=== PATIENT | female | born 1990 | race Hispanic/Latino ===

== ENCOUNTER 2024-05-16 17:30 | Inpatient (IN) | payer SELFPAY ==
[2024-05-16] VITALS (8 sets, daily range): BP systolic 92–129; BP diastolic 55–85; PULSE 81–112; RESP 16–19; TEMP 36.3–36.4; O2SAT 94–98; BMI 16.9
--- NOTE | 2024-05-16 17:49 | EDS_ITS ---
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 She presents here with a court ordered mandate for admission due to known tuberculosis and noncompliance and that she has not responded to previous contacts for treatment from the [facility]. The order of nursing home goes on to say that it will be in effect that she is admitted to [facility] in isolation until she is deemed noncontagious by the [facility]. The patient states she has cough and no other symptoms. She has never been diagnosed with TB in the past that she knows of. She states she does not know where she got it. She is somewhere between 12 and 16 weeks , she denies having any abdominal pain, vaginal bleeding or discharge or any other acute symptoms. [facility] Medical History Tuberculosis Home Medications ?Medication ?Instructions ?Recorded ?Last Taken ?Type vits no.130-ferrous fum 1 tab PO DAILY 05/16/24 Unknown History 27 mg iron-folic acid 800 mcg tablet ( Vitamin) Allergy/AdvReac Type Severity Reaction Status Date / Time No Known Allergies Allergy Verified 05/16/24 17:38 Family History no significant family his Social History (Updated 05/16/24 @ 17:38 by Vanita Celaya) household members: none Smoking Status: Never smoker ROS ROS ED Constitutional Constitutional ED: Denies chills or fever(s) Eyes Eyes: Denies change in vision or diplopia ENT ENT ED: Denies rhinorrhea or sore throat Cardiovascular Cardiovascular: Denies chest pain or palpitations Respiratory/Chest Respiratory/Chest: Reports cough; Denies dyspnea Gastrointestinal Gastrointestinal: Denies abdominal pain, diarrhea, nausea or vomiting Genitourinary Genitourinary ED: Denies dysuria or hematuria Musculoskeletal Musculoskeletal: Denies back pain or neck pain Integumentary Denies abscess or rash Neurologic Neurologic: Denies headache(s), paresthesias or weakness Psychiatric Psychiatric: Denies anxiety or suicidal thoughts EXAM Physical Exam Const Vital Signs: 05/16/24 17:31 05/16/24 17:39 05/16/24 18:31 Temperature 97.3 F L Temperature Source Axillary Pulse Rate 110 H 112 H 89 Respiratory Rate 16 16 19 H Respiratory Effort Respiratory Depth Respiratory Pattern Blood Pressure 113/72 112/85 H 106/61 Blood Pressure Mean 85 94 76 Pulse Ox 95 94 95 Oxygen Delivery Method Room Air Room Air 05/16/24 18:42 05/16/24 19:00 Temperature Temperature Source Pulse Rate 110 H Respiratory Rate 16 Respiratory Effort Normal Non-Labored Respiratory Depth Normal Respiratory Pattern Normal Blood Pressure 111/71 Blood Pressure Mean 84 Pulse Ox 98 Oxygen Delivery Method Room Air Positive well nourished and well developed General Appearance ED: well developed and NAD HEENT Reports moist mucous membranes normocephalic and atraumatic Eyes PERRL and EOMs intact bilaterally Neck full ROM, no lymphadenopathy and supple Resp normal respiratory effort and clear to auscultation bilaterally Effort and Inspection: able to speak in complete sentences Cardio regular rate, regular rhythm and no murmurs GI non-tender and non-distended Auscultation: normoactive bowel sounds Palpation: soft Back/Spine no CVA tenderness General Back: other FROM Extremity normal to inspection General Extremety ED: Negative for edema, pulses abnormal or tenderness General Extremity: Negative for edema or pulses abnormal Neuro oriented x3, CN's II-XII intact bilaterally and no sensory deficits noted Sensorium / Orientation: awake and alert Motor Exam: strength 5/5 throughout Skin no rashes or lesions noted and no wounds MDM MDM MDM Narrative Medical decision making narrative: Nursing was able to get heart tones, 156. Chest x-ray 1 view on my interpretation shows infiltrate right upper lobe. Radiology in agreement with cavitary lesion present consistent with active TB. Labs noted. Discussed with hospitalist for admission. Lab Data Attestation: I reviewed the patient's lab results. Labs: Laboratory Results - last 24 hr 05/16/24 17:56 WBC 9.6 RBC 4.77 Hgb 11.6 L Hct 36.7 L MCV 76.9 L MCH 24.3 L MCHC 31.6 L RDW Std Deviation 45.0 H RDW Coeff of Daren 16.3 H Plt Count 450 MPV 9.0 Immature Gran % (Auto) 0.400 Neut % (Auto) 82.6 H Lymph % (Auto) 12.1 L [place] % (Auto) 3.9 Eos % (Auto) 0.9 Baso % (Auto) 0.1 Absolute Neuts (auto) 8.0 H Absolute Lymphs (auto) 1.17 Nucleated RBC % 0 Sodium 134 L Potassium 3.6 Chloride 105 Carbon Dioxide 24.0 Anion Gap 5 BUN 8 Creatinine 0.42 L Estim Creat Clear Calc 119.61 Est GFR (MDRD) Af Amer 222 Est GFR (MDRD) Non-Af 184 BUN/Creatinine Ratio 18.9 Glucose 84 Calcium 9.0 Radiography Diagnostic Testing: Clinical Impression(s) from Imaging Studies Chest X-Ray 05/16/24 18:31 IMPRESSION: 1. Extensive diffuse interstitial and patchy alveolar infiltrate LEFT lung base, and extensive infiltrate with interstitial and parenchymal density in the RIGHT mid and upper lung with area of cavitation RIGHT upper lobe. Pattern is consistent with history of TB. 2. No evidence of congestive failure Electronically Signed: Timur Glynn MD at 19:16 EDT , Management Discussion w/another healthcare provider: Hospitalist Discharge Plan Triage Chief Complaint: Shortness of Breath ED Provider: Kemar Diamond Dx/Rx/DC Orders Clinical Impression: Active tuberculosis Prescriptions: No Action Vitamin 27 mg iron- 800 mcg tablet 1 tab PO DAILY Primary Care Provider: Care Physician,No Primary Referrals: Care Physician,No Primary [Primary Care Provider] - Print Language: Amharic Disposition Disposition: Acute Care Hospital [facility]
[2024-05-16 18:23] LABS: Absolute Lymphocyte Count 1.17 X10^3/uL (0.83-4.51); Basophil# 0.01 X10^3/uL; Basophil% 0.1 % (0-1); Eosinophil# 0.09 X10^3/uL; Eosinophils% 0.9 % (0-5); Hematocrit 36.7 % (37-47); Hemoglobin 11.6 g/dL (12.0-15.0); Lymphocyte # 1.17 X10^3/ul (0.83-4.51); Lymphocyte % 12.1 % (19-41); Mean Corp Hgb Conc 31.6 g/dL (32-36); Mean Corpuscular Hgb 24.3 pg (27.0-32.0); Mean Corpuscular Volume 76.9 fL (81-99); Monocyte# 0.38 X10^3/uL; Monocyte% 3.9 % (0-10); NRBC Flagged by Analyzer 0 % (0-5); Neutrophil # 7.95 X10^3/uL (2.7-7.7); Neutrophil % 82.6 % (47-70); Platelet Count 450 K/mm3 (150-450); RBC Distribution Width CV 16.3 % (11.6-14.6); Red Blood Count 4.77 M/mm3 (4.2-5.4); White Blood Count 9.6 K/mm3 (4.4-11.0)
--- NOTE | 2024-05-16 18:31 | RAD_ITS ---
INDICATION: cough; symptomatic TB EXAMINATION/TECHNIQUE: X-RAY - XR Chest 1 View COMPARISON: No previous relevant examinations available for comparison.. FINDINGS: LIFE-SUPPORT AND LINES: 1. None HEART AND VESSELS: The cardiac silhouette, pulmonary vasculature have normal appearance. No evidence of congestive failure. LUNGS AND PLEURAL SPACES: Extensive diffuse interstitial infiltrate with focal areas of nodular density at the LEFT lung base. Area of cavitation the RIGHT upper lobe, and significant interstitial and pleural thickening in the RIGHT mid and RIGHT upper lung. Pattern is consistent with history of TB. MEDIASTINUM AND HILAR REGIONS: No masses adenopathy noted. No areas of calcification. Visualized upper airway is normal in position. BONY ELEMENTS: No acute bony changes noted. RAD/Chest 1 View (Portable) IMPRESSION: 1. Extensive diffuse interstitial and patchy alveolar infiltrate LEFT lung base, and extensive infiltrate with interstitial and parenchymal density in the RIGHT mid and upper lung with area of cavitation RIGHT upper lobe. Pattern is consistent with history of TB. 2. No evidence of congestive failure Electronically Signed: Timur Glynn MD at 19:16 EDT ,
[2024-05-16 18:32] LABS: Anion Gap 5 (5-15); BUN 8 mg/dL (7-18); BUN/Creat Ratio 18.9 RATIO (10-20); Chloride 105 mmol/L (98-107); Creatinine, Serum 0.42 mg/dL (0.55-1.02); EST Glomerular Filtration Rate 184 mL/min (>60); Est Glom Filt Rate - Afr Amer 222 mL/min (>60); Estimated Creatinine Clearance 119.61 ml/min; Glucose 84 mg/dL (74-106); Potassium 3.6 mmol/L (3.5-5.1); Sodium Level 134 mmol/L (136-145)
--- NOTE | 2024-05-16 20:16 | PCM.HP.STD ---
[facility] - General General Date of Admission: 05/16/24 Date of Service: 05/16/24 Chief Complaint: Sent by health dept for TB. HPI Narrative Patient has 2 medical record numbers here: Her other medical record number is [id number]. KIZZY PICKTET, is a 34 F who presents by mandated by the health department for tuberculosis. Patient was seen here in November and had a cavitary lesion that was found out to be tuberculosis. Patient had been on treatment for that but due to the high cost, she had to get her medications from her family in [place]. She was taking medications up until recently where she said that she was told that the tuberculosis is not active and that she actually has a pneumonia and had been treated for that pneumonia. She then went to [facility] that told her that she would need treatment for her tuberculosis. [facility] Medical History Tuberculosis Home Medications ?Medication ?Instructions ?Recorded ?Last Taken ?Type vits no.130-ferrous fum 1 tab PO DAILY 05/16/24 Unknown History 27 mg iron-folic acid 800 mcg tablet ( Vitamin) Allergy/AdvReac Type Severity Reaction Status Date / Time No Known Allergies Allergy Verified 05/16/24 17:38 Family History no significant family his Social History (Updated 05/16/24 @ 20:[address] Lucas Devi DO) household members: none Smoking Status: Never smoker alcohol intake: never substance use type: does not use ROS ROS Narrative Patient has lost weight. Improved she was 55 kg (she [place] the states [place] about 2 [place]) and now she is down to 39 kg. Does have shortness of breath. All review of systems were negative except as mentioned above in the history of present illness and the other review of systems. Vital Signs Vital Signs Vital Signs: 05/16/24 17:31 05/16/24 17:39 05/16/24 18:31 Temperature 36.3 C L Temperature Source Axillary Pulse Rate 110 H 112 H 89 Respiratory Rate 16 16 19 H Respiratory Effort Respiratory Depth Respiratory Pattern Blood Pressure 113/72 112/85 H 106/61 Blood Pressure Mean 85 94 76 Pulse Ox 95 94 95 Oxygen Delivery Method Room Air Room Air 05/16/24 18:42 05/16/24 19:00 05/16/24 19:43 Temperature 36.3 C L Temperature Source Pulse Rate 110 H 81 Respiratory Rate 16 19 H Respiratory Effort Normal Non-Labored Respiratory Depth Normal Respiratory Pattern Normal Blood Pressure 111/71 129/81 H Blood Pressure Mean 84 97 Pulse Ox 98 95 Oxygen Delivery Method Room Air 05/16/24 20:00 Temperature Temperature Source Pulse Rate Respiratory Rate Respiratory Effort Respiratory Depth Respiratory Pattern Blood Pressure 106/59 L Blood Pressure Mean 74 Pulse Ox Oxygen Delivery Method Weight Weight: 39.4 kg Body Mass Index (BMI) 16.9 Results Lab / Micro Data Attestation: I reviewed the patient's lab results. 05/16/24 17:56 05/16/24 17:56 Labs: Laboratory Results - last 24 hr 05/16/24 17:56: WBC 9.6, RBC 4.77, Hgb 11.6 L, Hct 36.7 L, MCV 76.9 L, MCH 24.3 L, MCHC 31.6 L, RDW Std Deviation 45.0 H, RDW Coeff of Daren 16.3 H, Plt Count 450, MPV 9.0, Immature Gran % (Auto) 0.400, Neut % (Auto) 82.6 H, Lymph % (Auto) 12.1 L, [place] % (Auto) 3.9, Eos % (Auto) 0.9, Baso % (Auto) 0.1, Absolute Neuts (auto) 8.0 H, Absolute Lymphs (auto) 1.17, Nucleated RBC % 0, Sodium 134 L, Potassium 3.6, Chloride 105, Carbon Dioxide 24.0, Anion Gap 5, BUN 8, Creatinine 0.42 L, Estim Creat Clear Calc 119.61, Est GFR (MDRD) Af Amer 222, Est GFR (MDRD) Non-Af 184, BUN/Creatinine Ratio 18.9, Glucose 84, Calcium 9.0 Imaging Radiology Impression Chest X-Ray 05/16/24 18:31 IMPRESSION: 1. Extensive diffuse interstitial and patchy alveolar infiltrate LEFT lung base, and extensive infiltrate with interstitial and parenchymal density in the RIGHT mid and upper lung with area of cavitation RIGHT upper lobe. Pattern is consistent with history of TB. 2. No evidence of congestive failure Electronically Signed: Timur Glynn MD at 19:16 EDT , Assessment & Plan Assessment/Plan (1) Active tuberculosis: PLAN: Plan Tuberculosis Diagnosed back in August 2023. Patient had been using some tuberculosis medications that she was able to get through family from [place]. She stated that she was unable to afford the medications here. It is unclear if she was on RIPE therapy or something different. Chest x-ray still shows any ongoing right upper lobe cavitary lesion. Patient has been seen at [facility], however, was not able to find any records through [facility]. Discussed with Dr. Hamilton of infectious disease. He says he will review her records and make Further recommendations about what the treatment options should be. Patient had a court ordered mandate from the health department and that she will not be able to leave until she has been released by the health department. She is upset, obviously, she is not happy to have to eat hospital food and likes to cook her own food. About 3 months Continued vitamin Moderate protein calorie malnutrition Regular diet with supplements. Patient has lost roughly 16 kg over the past couple years. VTE prophylaxis: Low risk. Charges/Coding Visit Charges Inpatient E&M: 36578 Init Hosp L2
[2024-05-17 03:15] VITALS: BP 99/61; PULSE 112; RESP 16; TEMP 36.5; O2SAT 96
[2024-05-17 06:26] LABS: Absolute Lymphocyte Count 1.18 X10^3/uL (0.83-4.51); Absolute Neutrophil Count 6.8 X10^3/uL (2.0-7.7); Basophil# 0.02 X10^3/uL; Basophil% 0.2 % (0-1); Eosinophil# 0.16 X10^3/uL; Eosinophils% 1.9 % (0-5); Hematocrit 34.4 % (37-47); Hemoglobin 10.6 g/dL (12.0-15.0); Lymphocyte # 1.18 X10^3/ul (0.83-4.51); Lymphocyte % 13.8 % (19-41); Mean Corp Hgb Conc 30.8 g/dL (32-36); Mean Corpuscular Hgb 24.1 pg (27.0-32.0); Mean Corpuscular Volume 78.4 fL (81-99); Mean Platelet Vol. 8.7 fl (6.2-12.0); Monocyte# 0.38 X10^3/uL; Monocyte% 4.4 % (0-10); NRBC Flagged by Analyzer 0 % (0-5); Neutrophil # 6.79 X10^3/uL (2.7-7.7); Neutrophil % 79.2 % (47-70); Platelet Count 422 K/mm3 (150-450); RBC Distribution Width CV 16.4 % (11.6-14.6); RBC Distribution Width SD 46.3 fl (35.1-43.9); Red Blood Count 4.39 M/mm3 (4.2-5.4); White Blood Count 8.6 K/mm3 (4.4-11.0)
[2024-05-17 07:08] LABS: ALB/GLOB Ratio 0.5 RATIO (0.9-2.4); AST(SGOT) 17 U/L (15-37); Alanine Aminotransfer ALT/SGPT 13 U/L (13-56); Albumin, Serum 2.3 g/dL (3.2-5.0); Alkaline Phosphatase 116 U/L (45-117); Anion Gap 8 (5-15); BUN 7 mg/dL (7-18); BUN/Creat Ratio 18.3 RATIO (10-20); Calcium,Total 8.6 mg/dL (8.5-10.1); Chloride 106 mmol/L (98-107); Creatinine, Serum 0.38 mg/dL (0.55-1.02); EST Glomerular Filtration Rate 207 mL/min (>60); Est Glom Filt Rate - Afr Amer 250 mL/min (>60); Globulin 4.9 g/dL (2.2-4.2); Glucose 92 mg/dL (74-106); Potassium 3.5 mmol/L (3.5-5.1); Protein, Total 7.2 g/dL (6.4-8.2); Sodium Level 136 mmol/L (136-145); Thyroid Stim Hormone (TSH) 1.21 uIU/mL (0.358-3.74)
[2024-05-17 09:15] VITALS: BP 95/59; PULSE 104; RESP 16; TEMP 36.3; O2SAT 100
[2024-05-17] MEDS: Prenatal Vits Tablet 1 TABLET PO (09:20)
--- NOTE | 2024-05-17 11:17 | CON.PCM.ID_ITS ---
Assessment & Plan Assessment/Plan (1) Active tuberculosis: PLAN: Reviewed [facility] records, was admitted under name Stan Nicholson. She has prior admit here under Bessy Mcrae and was dx with TB in 08/2023. Reports taking unknown TB meds from doctor in [place] for 5 months, but still with active sputum cx (+) MTB, rif sensitive per pcr. HIV at [facility] neg, hep B and C and syph Ab neg as well. TB treatment plan is 9 months of oral abx: rifampin 450mg daily isoniazid 200mg daily with pyridoxine 25mg daily ethambutol 800mg daily after 2 months, if her TB in [facility] system is sensitive, plan would be to stop the ethambutol and continue the other 3 meds. Counseled her re: need for compliance with meds. These abx are safe during and while . Health dept has spoken with nursing this AM and will come see her today. Will need monitoring during the course to make sure sputum AFB clears. Will follow, thank you, d/w nursing, telehealth case manager, and hospitalist. (2) : HPI Consult Data Date of Consult: 05/17/24 HPI Narrative Reason for Consultation: TB HPI Narrative: BESSY PICKETT, is a 34 F who presents with active TB, 17 week gestation. Originally from [place]. Admitted 08/2023 here with hemoptysis, night sweats, cavitary lesions in chest. Dx with TB, health dept was unable to followup with her. She reports TB meds were too expensive, so took TB meds (9 pills a day) for 5 months from doctor in [place] that she called. No further hemoptysis, no night sweats. Continues to lose weight. Came to ED 02/2024 due to cough and dyspnea. Found she was , and she stopped TB meds due to concern for her baby. I was called from the ED and told that there was a patient who had taken an antibiotic for 4 months for TB without active symptoms or cavitary lesions on imaging which sounded consistent with latent TB. She has three different names in our hospital system, variations on Bessy/Amee/Stan and Salome/Thor. Admitted to [facility] this past week under name Stan Nicholson for pneumonia, seen by ID, dx with active TB based on (+) sputum AFB. Plan was made for TB treatment, health dept here wanted her admitted to [facility] to start on treatment in an observed setting. She is feeling ok, some mild nonproductive cough. No n/v/d. Full ROS performed and neg except as noted above. 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 [facility] Medical History (Updated 05/17/24 @ 11:[address] Estiven Chaves MD) Tuberculosis Home Medications ?Medication ?Instructions ?Recorded ?Last Taken ?Type vits no.130-ferrous fum 1 tab PO DAILY 05/16/24 Unknown History 27 mg iron-folic acid 800 mcg tablet ( Vitamin) Allergy/AdvReac Type Severity Reaction Status Date / Time No Known Allergies Allergy Verified 05/16/24 17:38 Family History no significant family his Social History household members: none Smoking Status: Never smoker alcohol intake: never substance use type: does not use Physical Exam Const alert, oriented x3 and no apparent distress General Appearance: cooperative HEENT normocephalic and head/scalp atraumatic Eyes PERRL and EOMs intact bilaterally Neck supple and No nodes Resp Resp Narrative: diminished RUL Cardio regular rate and regular rhythm GI soft to palpation, non-tender and non-distended Extremity General Extremity: Negative for edema Skin no rashes or lesions noted Neuro CN's II-XII intact bilaterally Lab / Micro Data Attestation: I reviewed the patient's lab results. 05/17/24 06:16 05/17/24 06:16 Labs: Laboratory Results - last 24 hr 05/16/24 17:56: WBC 9.6, RBC 4.77, Hgb 11.6 L, Hct 36.7 L, MCV 76.9 L, MCH 24.3 L, MCHC 31.6 L, RDW Std Deviation 45.0 H, RDW Coeff of Daren 16.3 H, Plt Count 450, MPV 9.0, Immature Gran % (Auto) 0.400, Neut % (Auto) 82.6 H, Lymph % (Auto) 12.1 L, [place] % (Auto) 3.9, Eos % (Auto) 0.9, Baso % (Auto) 0.1, Absolute Neuts (auto) 8.0 H, Absolute Lymphs (auto) 1.17, Nucleated RBC % 0, Sodium 134 L, Potassium 3.6, Chloride 105, Carbon Dioxide 24.0, Anion Gap 5, BUN 8, Creatinine 0.42 L, Estim Creat Clear Calc 119.61, Est GFR (MDRD) Af Amer 222, Est GFR (MDRD) Non-Af 184, BUN/Creatinine Ratio 18.9, Glucose 84, Calcium 9.0 05/17/24 06:16: WBC 8.6, RBC 4.39, Hgb 10.6 L, Hct 34.4 L, MCV 78.4 L, MCH 24.1 L, MCHC 30.8 L, RDW Std Deviation 46.3 H, RDW Coeff of Daren 16.4 H, Plt Count 422, MPV 8.7, Immature Gran % (Auto) 0.500, Neut % (Auto) 79.2 H, Lymph % (Auto) 13.8 L, [place] % (Auto) 4.4, Eos % (Auto) 1.9, Baso % (Auto) 0.2, Absolute Neuts (auto) 6.8, Absolute Lymphs (auto) 1.18, Nucleated RBC % 0, Sodium 136, Potassium 3.5, Chloride 106, Carbon Dioxide 22.0, Anion Gap 8, BUN 7, Creatinine 0.38 L, Estim Creat Clear Calc 132.20, Est GFR (MDRD) Af Amer 250, Est GFR (MDRD) Non-Af 207, BUN/Creatinine Ratio 18.3, Glucose 92, Calcium 8.6, Total Bilirubin 0.30, AST 17, ALT 13, Alkaline Phosphatase 116, Total Protein 7.2, A lbumin 2.3 L, Globulin 4.9 H, Albumin/Globulin Ratio 0.5 L, TSH 1.21 Imaging Radiology Impression Chest X-Ray 05/16/24 18:31 IMPRESSION: 1. Extensive diffuse interstitial and patchy alveolar infiltrate LEFT lung base, and extensive infiltrate with interstitial and parenchymal density in the RIGHT mid and upper lung with area of cavitation RIGHT upper lobe. Pattern is consistent with history of TB. 2. No evidence of congestive failure Electronically Signed: Timur Glynn MD at 19:16 EDT , ADDENDUM: 05/16/242031 IMPRESSION: undefined
[2024-05-17 15:00] VITALS: BP 97/55; PULSE 100; RESP 16; TEMP 36.6; O2SAT 95
--- NOTE | 2024-05-17 15:09 | PCM.DC.SUM ---
Providers Date of Admission: 05/16/24 Date of Discharge: 05/17/24 Primary Care Physician: Rochelle Primary Care Phys Consultations 05/16/24 20:37 Consult: Infectious Disease Routine Consulting Provider: Estiven Chaves Reason for Consult: TB EMERGENT Consult: No MD Notified: Yes Date Notified: 05/16/24 Time Notified: 20:15 Method of Notification: Verbal Reason For Visit: TB Diagnosis Discharge Diagnosis (1) Active tuberculosis: Status: Acute Code(s): A15.9 - Respiratory tuberculosis unspecified (2) : Status: Acute Code(s): Z34.90 - Encounter for supervision of normal , unspecified, unspecified trimester Medications at Discharge Home Medications vits no.130-ferrous fum 27 mg iron-folic acid 800 mcg tablet ( Vitamin) 1 tab PO DAILY 05/16/24 Hospital Course Operations None Procedures None Summary of Care Provided Minutes Spent on Discharge: 55 Hospital Course: Patient is a 34 year old female with a PMH of pulmonary tuberculosis who came in to the ED for admission as mandated by the [facility]. She was from [place] originally and had [place] in the [place] for about 2 [place]. She had been diagnosed with pulmonary tuberculosis in August 2023 and has been lost to follow-up. She has been taking an old TB meds from her doctor in [place] for 5 months because she said she was not getting meds here in the [place]. She was taking the medications until recently when she says she wa told the tuberculosis was not active and she was treated for pnuemonia. She was recently seen at a [facility] facility and was told her TB was still active and she would need treatment. She was discharged home to follow up with her PCP and ID to be given her TB meds. However, she was mandated to come to the ED for admission by the health department to commence treatment. ID was consulted. Patient was also about 17 weeks . Per ID, her sputum culture was still positive for AFBs. Chest x-ray showed extensive diffuse interstitial and patchy alveolar infiltrates in the left lung base and extensive infiltrate with interstitial and parenchymal density in the right mid and upper lung with area of cavitation in the right upper lobe which are consistent with history of TB. She also admitted to a history of significant weight loss over the last 2 years. ID reviewed patient and recommended that she be started on 9 months in total of TB treatment with rifampin for 50 mg daily, isoniazid 200 mg daily with pyridoxine 25 mg daily and ethambutol 800 mg daily. After 2 months if ATV was still testing positive plan would be to stop ethambutol and continue the other meds. She was counseled about need for compliance and counseled that these received during and was breast-feeding. All department came to see patient as patient would need monitoring during the course of the treatment to make sure his sputum for AFBs were clear. Patient was discharged home on 05/17/2024 and is to follow-up with her primary care doctor and to be followed up by the ID doctor on outpatient basis and to be monitored by the health department to ensure compliance with her TB meds. Patient seen and examined. I communicated with patient via [employer] offensive coordinator as she speaks only Nauruan. She had no complaints and wanted to be discharged home. Review of systems otherwise negative. Labs and vitals reviewed. Medication reviewed and reconciled. Physical Exam Const alert, oriented x3 and no apparent distress General Appearance: cooperative, comfortable and well kempt Orientation / Consciousness: awake Exam Limitations: no limitations Nutritional Appearance: underweight and thin HEENT normocephalic, head/scalp atraumatic, hearing grossly normal bilaterally, moist oral mucous membranes and oropharynx normal Mouth: oral and palatal mucosa normal Eyes PERRL, EOMs intact bilaterally and conjunctivae normal Neck no lymphadenopathy and supple Resp normal respiratory effort, no retractions, no use of accessory muscles and clear to auscultation bilaterally Cardio regular rate, regular rhythm, S1 normal heart sound, S2 normal heart sound and no murmurs GI normal to inspection, nondistended, normoactive bowel sounds, soft to palpation, non-tender and non-distended Extremity normal to inspection, full ROM and no clubbing, cyanosis or edema Skin no rashes or lesions noted Neuro oriented x3, CN's II-XII intact bilaterally, moves all extremities and no focal motor deficits Sensorium / Orientation: awake and alert Motor Exam: strength 5/5 throughout Psych affect normal Weight / BMI Weight Weight: 86 lb 13.794 oz Body Mass Index (BMI) 16.9 ABG / Lab / Microbiology Data 05/17/24 06:16 05/17/24 06:16 Laboratory: Laboratory Results - last 24 hr 05/16/24 17:56: WBC 9.6, RBC 4.77, Hgb 11.6 L, Hct 36.7 L, MCV 76.9 L, MCH 24.3 L, MCHC 31.6 L, RDW Std Deviation 45.0 H, RDW Coeff of Daren 16.3 H, Plt Count 450, MPV 9.0, Immature Gran % (Auto) 0.400, Neut % (Auto) 82.6 H, Lymph % (Auto) 12.1 L, Clayton % (Auto) 3.9, Eos % (Auto) 0.9, Baso % (Auto) 0.1, Absolute Neuts (auto) 8.0 H, Absolute Lymphs (auto) 1.17, Nucleated RBC % 0, Sodium 134 L, Potassium 3.6, Chloride 105, Carbon Dioxide 24.0, Anion Gap 5, BUN 8, Creatinine 0.42 L, Estim Creat Clear Calc 119.61, Est GFR (MDRD) Af Amer 222, Est GFR (MDRD) Non-Af 184, BUN/Creatinine Ratio 18.9, Glucose 84, Calcium 9.0 05/17/24 06:16: WBC 8.6, RBC 4.39, Hgb 10.6 L, Hct 34.4 L, MCV 78.4 L, MCH 24.1 L, MCHC 30.8 L, RDW Std Deviation 46.3 H, RDW Coeff of Daren 16.4 H, Plt Count 422, MPV 8.7, Immature Gran % (Auto) 0.500, Neut % (Auto) 79.2 H, Lymph % (Auto) 13.8 L, Clayton % (Auto) 4.4, Eos % (Auto) 1.9, Baso % (Auto) 0.2, Absolute Neuts (auto) 6.8, Absolute Lymphs (auto) 1.18, Nucleated RBC % 0, Sodium 136, Potassium 3.5, Chloride 106, Carbon Dioxide 22.0, Anion Gap 8, BUN 7, Creatinine 0.38 L, Estim Creat Clear Calc 132.20, Est GFR (MDRD) Af Amer 250, Est GFR (MDRD) Non-Af 207, BUN/Creatinine Ratio 18.3, Glucose 92, Calcium 8.6, Total Bilirubin 0.30, AST 17, ALT 13, Alkaline Phosphatase 116, Total Protein 7.2, Albumin 2.3 L, Globulin 4.9 H, Albumin/Globulin Ratio 0.5 L, TSH 1.21 Radiography Diagnostic Testing: Radiology Impression Chest X-Ray 05/16/24 18:31 IMPRESSION: 1. Extensive diffuse interstitial and patchy alveolar infiltrate LEFT lung base, and extensive infiltrate with interstitial and parenchymal density in the RIGHT mid and upper lung with area of cavitation RIGHT upper lobe. Pattern is consistent with history of TB. 2. No evidence of congestive failure Electronically Signed: Timur Glynn MD at 19:16 EDT , ADDENDUM: 05/16/242031 IMPRESSION: undefined D/C Instructions Discharge Diet: No restrictions Discharge Activity: Return to Normal Activity Weight Bearing Status: Weight bearing as tolerated Call your doctor if you observe: Fever of 101 or Higher, Shortness of breath, Dizziness, Swelling in the ankles and Chest pain Meaningful Use Info Meaningful Use Meaningful Use Diagnoses (Choose all that apply): None applicable Ischemic Stroke Statin Dosing Therapy Reference: STATIN DOSE THERAPY REFERENCE: * Patients > 75 years receive moderate or high dose statin therapy. * Patients 75 years or YOUNGER should receive HIGH intensity statin dose unless contraindicated. You will be required to document reason for non-treatment if statin daily dose does not meet guidelines. HIGH DOSE STATIN THERAPY DAILY Atorvastatin > than or = to 40 mg Rosuvastatin > than or = to 20 mg Amlodipine + Atorvastatin > than or = to 2.5/40 mg Ezetimibe + Simvastatin 10/80 mg Simvastatin 80mg Discharge Plan Admission Admit Date/Time: 05/16/24 20:14 Primary Reason for Your Visit: pulmonary tuberculosis Attending Provider: Billie Gomez Primary Care Provider: Care Physician,No Primary Consulting Providers: Epifanio Chaves Eric Instructions Patient Instructions: Tuberculosis Dc Discharge Orders/Prescriptions Prescriptions: Continued Vitamin 27 mg iron- 800 mcg tablet 1 tab PO DAILY Referrals / Follow Up: Care Physician,No Primary [Primary Care Provider] - Disposition Disposition (needs filled in before D/C Order can be placed): Home, Self Care Charges/Coding Visit Charges Inpatient E&M: 87762 Disch Hosp >30min
--- NOTE | 2024-05-17 15:48 | CASEMGMT ---
JOSSIE JAEGER Assessment/chart review: Chart review completed. Pt has active TB and the health dep't wanted her admitted to [facility] to start on treatment. This RN CM has spoken w/both Angeles (nurse) and Carly, who are from [facility] and have been in to talk w/pt today, using the interpretor pad. Pt is [place] speaking and came from [place] about 2 1/2 years ago. Pt is currently , 17 weeks gestation. Pt has a sister, Rebecca Aguila, who is listed on pt's demographics as living in [place], although Angeles states the sister is currently in [place]. Pt has reported that she lives w/friend, Julio Douglas. PCP, TRANSCRIPTION: Pt does not have a PCP or TRANSCRIPTION. Angeles @ the [facility]' states she will work on coordinating appts for pt for follow-up care w/PCP and TRANSCRIPTION. Pt also provided w/T[place]anian written pamphlet on [facility]. Insurance: No insurance. Pt was admitted to [facility] 09/08/23 w/PNA. ID consulted. Yesenia HENDRICKS, note 09/09/23, referral made to [facility] for [facility] application completion. Medications: Pt was provided w/medications for TB @ discharge from [facility]. Angeles states pt has verified with them that she has 30-day supply of TB meds @ her home. Angeles states they will personally go into pt's home to verify this @ dc. They will do Direct Observation Therapy w/pt daily where they will go to pt's home and personally observe her taking her medications. They are in the process of purchasing and iPad for pt and once they obtain this, they will Facetime w/pt daily to observe her taking TB medications. Transportation: Angeles states they have a mobile unit and they will provide transportation of pt from the hospital to her home @ discharge. Angeles states she will be closely working w/patient re: TB treatment and f/u care and states no further f/u needed by this JOSSIE Gomez made aware Angeles from the [facility]' has things arranged for pt to discharge home today. fire operations forester, Tiffanie, aware and is to contact Angeles once discharge orders are in and pt is ready to discharge. Tiffanie provided w/the [facility] Dep't #, Angeles's extension, and Angeles's cell #. Rodolfo BSN RN CM
[2024-05-17] MEDS: 0.9% Normal Saline (500mL Bag) 500 ML 1000 ML IV (16:21)
--- NOTE | 2024-05-17 16:31 | DCINST_ITS ---
Discharge Instructions Diet Discharge Diet: No restrictions Activity Discharge Activity: Return to Normal Activity Weight Bearing Status: Weight bearing as tolerated Dressing / Incision Call your doctor if you observe: Fever of 101 or Higher, Shortness of breath, Dizziness, Swelling in the ankles and Chest pain Follow Up Care Test Results: Test results from this visit will be discussed in further detail at your follow- up appointment, if applicable. Discharge Plan Admission Admit Date/Time: 05/16/24 20:14 Primary Reason for Your Visit: pulmonary tuberculosis Attending Provider: Billie Gomez Primary Care Provider: Care Physician,No Primary Consulting Providers: Estiven Chaves; Lucas Devi Instructions Patient Instructions: Tuberculosis Dc Discharge Orders/Prescriptions Prescriptions: Continued Vitamin 27 mg iron- 800 mcg tablet 1 tab PO DAILY Referrals / Follow Up: Care Physician,No Primary [Primary Care Provider] - Disposition Disposition (needs filled in before D/C Order can be placed): Home, Self Care
[2024-05-17 17:04] VITALS: BP 102/60
== END 2024-05-17 17:51 | disposition home or self-care (01) | DRG 832 ==
LOC: ED 19:44 → PCU 20:40
PROVIDERS: Emergency Provider Emergency Medicine; Visit Provider Student in an Organized Health Care Education/Training Program
DX: O98.012 Tuberculosis complicating pregnancy, second trimester (principal); A15.9 Respiratory tuberculosis unspecified; E44.0 Moderate protein-calorie malnutrition; O25.12 Malnutrition in pregnancy, second trimester; Z3A.17 17 weeks gestation of pregnancy; Z91.199 Patient's noncompliance with other medical treatment and regimen due to unspecified reason; Z60.3 Acculturation difficulty
CPT/HCPCS: 36415; 71045; 80048; 80053; 84443; 85025; 97802; 99283; J7040; A4216